=== PATIENT | male | born 2000 | race African-American/Black ===

== ENCOUNTER 2025-03-23 15:22 | Emergency (ER) | payer MEDICAID ==
[~2025-03-23] VITALS: Ht 180.3 cm; Wt 91.0 kg
[2025-03-23 15:23] VITALS: O2SAT 100
[2025-03-23 16:02] VITALS: BP 114/70; PULSE 82; RESP 14; TEMP 36.7; O2SAT 100
== END 2025-03-23 19:58 | disposition left against medical advice (07) ==
LOC: ER 15:22
DX: M54.2 Cervicalgia (principal); Z53.21 Procedure and treatment not carried out due to patient leaving prior to being seen by health care provider